=== PATIENT | male | born 1990 | race African-American/Black ===

== ENCOUNTER 2020-02-23 12:45 | Emergency (ER) | payer OTHER ==
[~2020-02-23] VITALS: Ht 182.9 cm; Wt 103.9 kg
[~2020-02-23 12:45] MED LIST: AUGMENTIN 875875 MG PO; HYDROCODON-ACE1 EAC7 PO; NORCO 5-325 TA1 EAC2 PO; ONDANSETRON HCL4 M2 PO
[2020-02-23] MEDS ORDERED: WELLBUTRIN SR150 MG PO (13:07)
[2020-02-23] MEDS ORDERED: DESYREL150 MG PO (13:08)
[2020-02-23] MEDS ORDERED: CYMBALTA20 MG PO (13:08)
[2020-02-23] MEDS ORDERED: AZITHROMYCIN250 MG PO (13:34)
[2020-02-23] MEDS ORDERED: VALACYCLOVIR1000 MG PO (13:34)
[2020-02-23] MEDS ORDERED: SUPRAX400 M1 PO (13:34)
[2020-02-23 14:01] VITALS: BP 120/74
[2020-02-23 14:54] LABS: URINE BILIRUBIN NEGATIVE (Negative); URINE BLOOD NEGATIVE (Negative); URINE CLARITY CLEAR; URINE COLOR YELLOW; URINE GLUCOSE-RANDOM NEGATIVE (Negative); URINE KETONES NEGATIVE (Negative); URINE LEUKOCYTES-REFLEX NEGATIVE (Negative); URINE NITRITE-REFLEX NEGATIVE (Negative); URINE PROTEIN NEGATIVE (Negative); URINE SPECIFIC GRAVITY >= 1.030 (1.005-1.030); URINE UROBILINOGEN 0.2 E.U./dl (0.2-1.0)
== END 2020-02-23 14:02 | disposition home or self-care (01) ==
LOC: M.ERS 12:45
PROVIDERS: Physician Assistant
DX: R21 Rash and other nonspecific skin eruption (principal); J45.909 Unspecified asthma, uncomplicated; F17.210 Nicotine dependence, cigarettes, uncomplicated